=== PATIENT | female | born 1975 | race Caucasian/White ===

== ENCOUNTER 2020-11-15 12:52 | Emergency (ER) | payer MEDICARE, MEDICAID, SELFPAY ==
[2020-11-15] VITALS (7 sets, daily range): BP systolic 144–180; BP diastolic 87–99; PULSE 75–94; RESP 18–19; TEMP 36.9–37.2; O2SAT 99–100; BMI 30.8
--- NOTE | 2020-11-15 | ECG_ITS ---
Test Reason : CHEST PAIN Blood Pressure : / mmHG Vent. Rate : 100 BPM Atrial Rate : 100 BPM P-R Int : 118 ms QRS Dur : 076 ms QT Int : 356 ms P-R-T Axes : 047 040 074 degrees QTc Int : 459 ms Normal sinus rhythm Possible Left atrial enlargement Nonspecific ST abnormality Abnormal ECG When compared with ECG of 05-MAY-2015 13:00, No significant change was found Referred By: Generic ED Physician Electronically Signed By:CHIOMA TOBIN
--- NOTE | ~2020-11-15 | CT_ITS ---
EXAMINATION: CT ANGIOGRAM OF THE CHEST WITH AND WITHOUT CONTRAST (CT PULMONARY ANGIOGRAM FOR PE) CLINICAL INFORMATION: Reason for Exam sob, cp, elevated d dimer, r/o pe COMPARISON: CTA chest 06/17/2014 TECHNIQUE: Prior to contrast administration, noncontrast localization images were obtained. Subsequently, multidetector volumetric imaging was performed from the thoracic inlet to below the diaphragms following the administration of 63 mL Omnipaque 350 intravenous contrast. No contrast reaction reported Sagittal, coronal, and MIP oblique sagittal reformatted images were obtained on the CT workstation, uploaded to PACS, and reviewed. This CT examination was performed using dose optimization techniques as appropriate, variously including the following: *Automated exposure control *Adjustment of mA and/or kV according to patient size (this includes techniques or standardized protocols for targeted exams where dose is matched to indication/reason for exam; i.e. extremities or head) *Use of iterative reconstruction technique Total exam dose-length product 1025 mGy-cm FINDINGS: QUALITY OF STUDY/CONTRAST BOLUS: Satisfactory. PULMONARY ARTERIES: No central or segmental pulmonary emboli. THORACIC AORTA: No aneurysm or dissection. LUNG: No focal consolidation, worrisome nodules or masses. 3 perihepatic visual nodular densities present along the minor fissure on the right, the largest measuring 4 mm (19:193, 194 and 196) with a single 3 mm left lower lobe nodule along the major fissure (19:199). All of these findings are unchanged when compared to the prior study. PLEURA: No pleural effusion or pneumothorax. MEDIASTINUM: Normal heart size. No pericardial effusion. There are some small mediastinal and hilar lymph nodes present but there is no hilar or mediastinal lymphadenopathy. No evidence of septal bowing or right heart strain. CHEST WALL/AXILLA: No axillary or internal mammary lymphadenopathy. OSSEOUS STRUCTURES: No acute or suspicious osseous abnormality. Degenerative changes are present in the spine. UPPER ABDOMEN: Unremarkable. No reflux of contrast into the hepatic veins to suggest elevated right heart pressures. CT/CT angio chest PE protocol IMPRESSION: 1. No evidence of pulmonary emboli. 2. A concerning or worrisome finding is not present. Lung nodules stable when compared to 2015 study. VTE: negative
--- NOTE | ~2020-11-15 | CT_ITS ---
EXAMINATION: CT HEAD WITHOUT CONTRAST CLINICAL INFORMATION: Dizziness, headache. COMPARISON: 11/15/[address] scan. TECHNIQUE: Contiguous axial imaging was performed from the skull base to vertex without intravenous administration of contrast. Coronal and sagittal reformatted images were obtained. This CT examination was performed using dose optimization techniques as appropriate, variously including the following: *Automated exposure control *Adjustment of mA and/or kV according to patient size (this includes techniques or standardized protocols for targeted exams where dose is matched to indication/reason for exam; i.e. extremities or head) *Use of iterative reconstruction technique DLP: 1025 mGy-cm FINDINGS: There is no evidence of acute intracranial hemorrhage or territorial infarction. No abnormal mass effect or midline shift is seen. Mckeon to white matter differentiation is well preserved. No extra-axial fluid collections are identified. The ventricles are normal in size. There is no abnormal attenuation within the brain parenchyma. The osseous structures and soft tissues are normal. The mastoid air cells and visualized portions of the paranasal sinuses are well aerated. Moderate to severe mucosal thickening is seen in the right nasal mucosa. Moderate mucosal thickening is seen on the left. CT/CT head/brain wo con IMPRESSION: 1. No acute intracranial pathology. 2. Prominent nasal mucosal thickening, right greater than left. Correlate with physical exam.
[2020-11-15 16:04] LABS: Basophils Percent Auto 0.3 % (0-2); Eosinophils Absolute Auto 0.2 X10*3/uL (0.0-0.4); Eosinophils Percent Auto 2.5 % (0-4); Hematocrit 44.1 % (37-47); Hemoglobin 14.3 g/dl (12.0-16.0); Imm Gran Abs Auto 0.04 X10*3/uL (0.00-0.03); Imm Gran Pct Auto 0.4 % (0.0-0.4); Lymphocytes Absolute Auto 2.7 X10*3/uL (1.2-4.9); Lymphocytes Percent Auto 28.2 % (20-40); MANUAL DIFF FLAG NO; Mean Corpuscular HGB Conc 32.4 g/dl (31.0-35.0); Mean Corpuscular Hemoglobin 32.4 pg (27.0-33.0); Mean Platelet Volume 10.3 fL (9.4-12.3); Monocytes Absolute Auto 0.8 X10*3/uL (0.1-1.2); Monocytes Percent Auto 8.5 % (2-11); Neutrophils Absolute Auto 5.8 X10*3/uL (2.0-8.3); Neutrophils Percent Auto 60.1 % (45-73); Platelet Count 250 X10*3/uL (160-400); Red Blood Count 4.41 X10*6/uL (4.20-5.50); Red Cell Distribution Width 12.3 % (11.0-16.0); White Blood Count 9.6 X10*3/uL (4.8-10.8)
[2020-11-15 16:09] LABS: INTERNATIONAL NORM RATIO 0.9 (0.9-1.1); Prothrombin Time 10.7 SEC (9.9-13.0)
[2020-11-15 16:12] LABS: D Dimer 427 NG/ML
--- NOTE | 2020-11-15 16:12 | ED_ITS ---
HPI - Chest Pain General Chief Complaint: Chest Pain Stated Complaint: cp Time Seen by Provider: 11/15/20 15:33 Source: patient and family Mode of arrival: ambulatory Limitations: no limitations History of Present Illness HPI narrative: 45-year-old female with a past medical history of rheumatoid arthritis, GERD here with complaints of dizziness with position changes for 2 weeks, feeling palpitations with moving, mild chest discomfort and shortness of breath. Patient tells me that she has felt very dizzy with moving and has fallen several times with no head strike or loss of consciousness. She tells me she also feels like her right arm gets fatigued at times and weak and this is also in going on for several weeks with some intermittent numbness and paresthesias. She also has some discomfort in her right calf which she is unable to tell me how long this is been going on for. She tells me she was seen at [facility] November 12 for similar symptoms. She had lab work, EKG, chest x-ray, CT head and neck with contrast, right lower extremity ultrasound all unremarkable. She was discharged home with primary care follow- up. She tells me she is here today for persistent symptoms. She tells me she did not want to go back to [facility] want to come here for a 2nd opinion. Of note the patient was noted to be hypertensive there with a blood pressure 161/105. Per patient her blood pressure is normally normotensive. She is not currently on any medications for high blood pressure Related Data Previous Rx's Medication Instructions Recorded amlodipine 5 mg tablet (Norvasc) 5 mg PO DAILY #30 tab 11/15/20 amoxicillin 875 mg-potassium 1 tab PO Q12H #14 tab 11/15/20 clavulanate 125 mg tablet (Augmentin) cetirizine 10 mg tablet 10 mg PO DAILY #30 tab 11/15/20 Allergies Allergy/AdvReac Type Severity Reaction Status Date / Time cyclobenzaprine Allergy Intermediate CHEST PAIN Unverified 11/22/19 16:50 [From FLEXERIL] prednisone [PREDNISONE] Allergy Intermediate CHEST PAIN Unverified 11/22/19 16:50 Review of Systems Review of Systems: Yes all other systems are reviewed and are negative Constitutional: Constitutional: Reports no additional constitutional complaints, Denies body ache(s), Denies chills, Denies fever(s), Reports headache(s) and Denies weakness Eyes: Eyes: Reports no additional eye complaints and Denies change in vision ENT: Reports system reviewed and no additional complaints, except as documented, Reports dizziness, Reports headache(s), Denies nasal congestion, Denies nasal discharge and Denies neck pain Cardiovascular: Cardiovascular: Reports no additional cardiovascular complaints, Reports chest pain, Denies leg edema, Reports palpitations and Denies dyspnea Respiratory: Respiratory: Reports no additional respiratory complaints, Denies cough and Denies dyspnea Gastrointestinal: Gastrointestinal: Reports no additional gastrointestinal complaints, Denies abdominal pain, Denies diarrhea, Denies nausea and Denies vomiting Genitourinary: Genitourinary: Reports no additional female genitourinary complaints and Denies urinary incontinence Musculoskeletal: Musculoskeletal: Reports no additional musculoskeletal complaints, Denies back pain, Denies arthralgias, Denies joint swelling, Denies neck pain, Denies numbness and Denies tingling Comments: leg pain Integumentary/Breasts: Skin/Breast: Reports system reviewed and no additional complaints, except as docu and Denies rash Neurologic: Reports system reviewed and no additional complaints, except as documented, Denies Abnormal speech present, Reports dizziness, Reports headache(s), Denies numbness, Denies tingling and Denies weakness Endocrine: Endocrine: Reports palpitations PMFSH Past Medical History Attestation statement: The following information was validated with the patient. Source: old records reviewed and nursing notes reviewed Medical History Back problem Rheumatoid arthritis Social History Social History Patient Tobacco Use Status: Current everyday Tobacco user Use of substances other than those prescribed or required for medical reasons: No Advance Directives: No Advance Directives Information Provided: No Patient : No Physical Exam Vital Signs: Vital Signs: Last Vital Signs Temp 98.5 F 11/15/20 17:04 Pulse 75 11/15/20 18:57 Resp 18 11/15/20 18:57 BP 169/90 H 11/15/20 18:57 Pulse Ox 99 11/15/20 18:57 Body Mass Index 30.8 Const: General: cooperative, healthy appearing, comfortable and no acute distress Orientation/consciousness: patient oriented x3 Limitations: no limitations HENMT: Head: Yes normal to inspection Ears: hearing grossly normal bilaterally General nose exam: Normal external nose present Face and sinus: Yes normal facial exam Mouth: Normal oral and palatal mucosa present Throat: Yes posterior oropharynx normal Eyes: General: appearance normal, both eyes and all related structures Pupils: Equal, round and reactive pupils present Neck: Neck: Yes normal visual inspection Chest: Chest palpation & inspection: normal inspection of the chest Resp: Effort & Inspection: normal respiratory effort Auscultation: clear to auscultation bilaterally Cardio: Rate: regular rate Rhythm: regular rhythm Peripheral pulses: Peripheral pulses 2+ throughout GI: Inspection: Yes normal to inspection Palpation (GI): Soft to palpation and nontender Auscultation: normal bowel sounds Back/Spine/Pelvis: Thoracic/Lumbar Spine: thoracic and lumbar spine normal to inspection Skin: General skin exam: no rashes or lesions noted Neuro: General: patient oriented x3, no focal motor deficits and normal sensation to monofilament Cranial nerves: Yes CN's II-XII intact bilaterally, Yes Equal, round and reactive pupils present, Yes Bilaterally intact EOM pres ent, Yes Nystagmus not present, Yes Normal facial strength present and Yes Midline tongue present Cognition (Neuro): normal cognition Speech: No A bnormal speech present Gait exam (Neuro): Normal gait present Motor exam (neuro): 5/5 motor strength present throughout Sensory Exam: Normal double simultaneous stimulation for sensation Coordination: [id number] test normal, [id number] test normal and tandem gait normal Extrem: Other: right calf tendernesss-mild no warmth or redness General: Yes normal to inspection and Yes no pedal edema Course Course Course Narrative: 45-year-old female here with complaints of dizziness, palpitations, mild headache, right upper extremity fatigue and numbness which is intermittent and right posterior calf pain for several weeks. Seen at [facility] on November 12 for similar complaints and had extensive workup including labs, EKG, chest x-ray, CT head and neck and right lower extremity ultrasound all unremarkable. Discharged home with primary care follow-up. The patient tells me her symptoms have continued. She was noted to be hypertensive during her ER visit and is hypertensive today. Will obtain records from [facility]. Will check EKG, labs, UA. 1645-obtain records from [facility]. CT head and neck unremarkable. Labs all unremarkable. Right lower extremity ultrasound negative for DVT. Due to complaints of palpitations, dizziness, mild chest discomfort and shortness of breath with an elevated D-dimer will check CTA to rule out PE vs dissection. Patient also with complaints of intermittent RUE weakness/numbness. No paresthesias noted on exam. No sensation loss or weakness on exam. Normal neuro exam. Will repeat CT head. Antihypertensive for blood pressure control Symptoms likely multifactorial 2100-CT chest negative. CT head concerning for sinusitis but otherwise unremarkable. Patient does report nasal congestion, sinus pressure and pain. Her dizziness and headache may be related to underlying sinusitis. However I believe is multifactorial as her blood pressure is also elevated. Blood pressure has improved with a dose of Norvasc here in the emergency department so I will send her home with the same.. Her troponin was mildly elevated however her EKG shows no EKG changes and her chest pain is very atypical for ACS. Will plan for repeat 3 hour troponin. Repeat neurological exam is benign. No focal deficits. I discussed all the findings with the patient. I recommend that she follow-up with her primary care doctor outpatient. Reviewed worrisome signs and symptoms when to return to the emergency department . Comfortable discharge home. -Sign out to Celestina [employer] pending repeat troponin MDM - Chest Pain MDM Narrative Medical decision making narrative: Hypertensive urgency PE Constellation of symptoms within benign exam. Hemodynamically stable. Extensive workup at [facility] 3 days ago with no acute finding. Medical Records Data Attestation: I reviewed the patient's medical records. Lab Data Attestation: I reviewed the patient's lab results. Result diagrams: 11/15/20 15:58 11/15/20 15:58 Labs: Lab Results 11/15/20 11/15/20 11/15/20 Range/Units 15:58 15:58 15:58 WBC 9.6 (4.8-10.8) X10*3/uL RBC 4.41 (4.20-5.50) X10*6/uL Hgb 14.3 (12.0-16.0) g/dl Hct 44.1 (37-47) % MCV 100.0 H (80-98) fL MCH 32.4 (27.0-33.0) pg MCHC 32.4 (31.0-35.0) g/dl RDW 12.3 (11.0-16.0) % Plt Count 250 (160-400) X10*3/uL MPV 10.3 (9.4-12.3) fL Immature Gran % (Auto) 0.4 (0.0-0.4) % Neut % (Auto) 60.1 (45-73) % Lymph % (Auto) 28.2 (20-40) % [place] % (Auto) 8.5 (2-11) % Eos % (Auto) 2.5 (0-4) % Baso % (Auto) 0.3 (0-2) % Lymph # (Auto) 2.7 (1.2-4.9) X10*3/uL [place] # (Auto) 0.8 (0.1-1.2) X10*3/uL Eos # (Auto) 0.2 (0.0-0.4) X10*3/uL Baso # (Auto) 0.0 (0.0-0.2) X10*3/uL Abs Immat Gran (auto) 0.04 H (0.00-0.03) X10*3/uL Absolute Neuts (auto) 5.8 (2.0-8.3) X10*3/uL Absolute Nucleated RBC 0.000 (0.0-0.012) X10*3/uL Nucleated RBC % (auto) 0.0 (0.0-0.2) /100WBC PT 10.7 (9.9-13.0) SEC INR 0.9 (0.9-1.1) D-Dimer 427 NG/ML Sodium 139 (135-145) mmol/L Potassium 3.8 (3.3-5.1) mmol/L Chloride 104 (96-108) mmol/L Carbon Dioxide 27 (22-29) mmol/L Anion Gap 12 (12-20) BUN 11 (9-16) mg/dL Creatinine 0.84 (0.5-1.4) mg/dL Estim Creat Clear Calc 76.9 Estimated GFR > 60 Random Glucose 98 (60-115) mg/dL Calcium 9.5 (8.4-10.2) mg/dL Magnesium 1.9 (1.6-2.6) mg/dL Total Bilirubin < 0.2 (0.0-1.0) mg/dL Direct Bilirubin < 0.2 (0.0-0.5) mg/dL AST 17 (5-31) U/L ALT 19 (0-31) U/L Alkaline Phosphatase 91 (39-117) U/L Troponin I High Sens (<3.5-17.0) ng/L Total Protein 7.5 (6.5-8.0) g/dL Albumin 4.2 (3.5-5.0) g/dL TSH 1.30 (0.32-4.0) uIU/mL Urine Color Urine Appearance Urine pH (5.0-8.0) Ur Specific [place] (1.005-1.025) Urine Protein (NEG-TRACE) MG/DL Urine Glucose (UA) (NEG) MG/DL Urine Ketones (NEG) MG/DL Urine Blood (NEG) Urine Nitrite (NEG) Ur Leukocyte Esterase (NEG) Urine RBC (0) /HPF Urine WBC (0-4) /HPF Ur Squamous Epith Cells /LPF Urine Bacteria /LPF 11/15/20 11/15/20 Range/Units 15:58 16:16 WBC (4.8-10.8) X10*3/uL RBC (4.20-5.50) X10*6/uL Hgb (12.0-16.0) g/dl Hct (37-47) % MCV (80-98) fL MCH (27.0-33.0) pg MCHC (31.0-35.0) g/dl RDW (11.0-16.0) % Plt Count (160-400) X10*3/uL MPV (9.4-12.3) fL Immature Gran % (Auto) (0.0-0.4) % Neut % (Auto) (45-73) % Lymph % (Auto) (20-40) % [place] % (Auto) (2-11) % Eos % (Auto) (0-4) % Baso % (Auto) (0-2) % Lymph # (Auto) (1.2-4.9) X10*3/uL [place] # (Auto) (0.1-1.2) X10*3/uL Eos # (Auto) (0.0-0.4) X10*3/uL Baso # (Auto) (0.0-0.2) X10*3/uL Abs Immat Gran (auto) (0.00-0.03) X10*3/uL Absolute Neuts (auto) (2.0-8.3) X10*3/uL Absolute Nucleated RBC (0.0-0.012) X10*3/uL Nucleated RBC % (auto) (0.0-0.2) /100WBC PT (9.9-13.0) SEC INR (0.9-1.1) D-Dimer NG/ML Sodium (135-145) mmol/L Potassium (3.3-5.1) mmol/L Chloride (96-108) mmol/L Carbon Dioxide (22-29) mmol/L Anion Gap (12-20) BUN (9-16) mg/dL Creatinine (0.5-1.4) mg/dL Estim Creat Clear Calc Estimated GFR Random Glucose (60-115) mg/dL Calcium (8.4-10.2) mg/dL Magnesium (1.6-2.6) mg/dL Total Bilirubin (0.0-1.0) mg/dL Direct Bilirubin (0.0-0.5) mg/dL AST (5-31) U/L ALT (0-31) U/L Alkaline Phosphatase (39-117) U/L Troponin I High Sens 13.5 (<3.5-17.0) ng/L Total Protein (6.5-8.0) g/dL Albumin (3.5-5.0) g/dL TSH (0.32-4.0) uIU/mL Urine Color YELLOW Urine Appearance CLEAR Urine pH 6.0 (5.0-8.0) Ur Specific [place] 1.015 (1.005-1.025) Urine Protein NEG (NEG-TRACE) MG/DL Urine Glucose (UA) NEG (NEG) MG/DL Urine Ketones NEG (NEG) MG/DL Urine Blood TRACE (NEG) Urine Nitrite NEG (NEG) Ur Leukocyte Esterase NEG (NEG) Urine RBC 1-4 (0) /HPF Urine WBC 0 (0-4) /HPF Ur Squamous Epith Cells TRACE /LPF Urine Bacteria NONE /LPF Imaging Data CT scan - chest: Attestation: I personally reviewed and interpreted this imaging study as follows: Radiologist's impression: INDINGS: QUALITY OF STUDY/CONTRAST BOLUS: Satisfactory. PULMONARY ARTERIES: No central or segmental pulmonary emboli.? THORACIC AORTA: No aneurysm or dissection. LUNG: No focal consolidation, worrisome nodules or masses. 3 perihepatic visual nodular densities present along the minor fissure on the right, the largest measuring 4 mm (19:193, 194 and 196) with a single 3 mm left lower lobe nodule along the major fissure (19:199). All of these findings are unchanged when compared to the prior study. PLEURA: No pleural effusion or pneumothorax. MEDIASTINUM: Normal heart size.? No pericardial effusion. There are some small mediastinal and hilar lymph nodes present but there is no hilar or mediastinal lymphadenopathy.? No evidence of septal bowing or right heart strain. CHEST WALL/AXILLA: No axillary or internal mammary lymphadenopathy. OSSEOUS STRUCTURES: No acute or suspicious osseous abnormality. Degenerative changes are present in the spine. UPPER ABDOMEN: Unremarkable.? No reflux of contrast into the hepatic veins to suggest elevated right heart pressures. CT/CT angio chest PE protocol IMPRESSION: 1.? No evidence of pulmonary emboli. 2.? A concerning or worrisome finding is not present. Lung nodules stable when compared to 2015 study. ? VTE: negative CT scan - head: Attestation: I personally reviewed and interpreted this imaging study as follows: Radiologist's impression: [place] [id number] CT Scan Report Signed Patient: Sania Ornelas MR#: [id number] : 1975 Acct:[id number] Age/Sex: 45 / F ADM Date: 11/15/20 Loc: .ED Attending Dr: Ordering Physician: Adrienne Cloud NP Date of Service: 11/15/20 Procedure(s): CT head/brain wo [facility] Accession Number(s): [id number] cc: Adrienne Cloud NP~ EXAMINATION: CT HEAD WITHOUT CONTRAST CLINICAL INFORMATION: Dizziness, headache.? COMPARISON: 11/15/[address] scan. TECHNIQUE: Contiguous axial imaging was performed from the skull base to vertex without intravenous administration of contrast. Coronal and sagittal reformatted images were obtained. This CT examination was performed using dose optimization techniques as appropriate, variously including the following: *Automated exposure control *Adjustment of mA and/or kV according to patient size (this includes techniques or standardized protocols for targeted exams where dose is matched to indication/reason for exam; i.e. extremities or head) *Use of iterative reconstruction technique DLP: 1025 mGy-cm FINDINGS: There is no evidence of acute intracranial hemorrhage or territorial infarction. No abnormal mass effect or midline shift is seen. Mckeon to white matter differentiation is well preserved. No extra-axial fluid collections are identified. The ventricles are normal in size. There is no abnormal attenuation within the brain parenchyma. The osseous structures and soft tissues are normal. The mastoid air cells and visualized portions of the paranasal sinuses are well aerated. Moderate to severe mucosal thickening is seen in the right nasal mucosa. Moderate mucosal thickening is seen on the left. ? CT/CT head/brain wo con IMPRESSION: 1. No acute intracranial pathology. 2. Prominent nasal mucosal thickening, right greater than left. Correlate with physical exam. ECG Data ECG #1: Attestation: I personally reviewed and interpreted this ECG as follows: ECG interpretation date: 11/15/20 ECG interpretation time: 13:29 Interpretation: Normal sinus rhythm with a rate of 100, normal AR, normal QRS, normal QT. Nonspecific ST changes Discharge Plan Discharge Clinical Impression: Sinusitis, Hypertension Patient Disposition: Home, Self-Care Instructions: Sinusitis (ED), Hypertension (ED) Additional Instructions: Please follow-up with your primary care doctor for a blood pressure recheck and re-evaluation for your symptoms Change positions slowly Increase fluids, rest Start all your medications tomorrow Prescriptions: New amoxicillin-pot clavulanate [Augmentin] 875-125 mg tablet 1 tab PO Q12H Qty: 14 RF: 0 cetirizine 10 mg tablet 10 mg PO DAILY Qty: 30 RF: 0 amlodipine [Norvasc] 5 mg tablet 5 mg PO DAILY Qty: 30 RF: 0 Referrals: Klaudia River MD [Primary Care Provider] - 2 days
[2020-11-15 16:22] LABS: Appearance Urine CLEAR; Color Urine YELLOW; Glucose Urine UA NEG (NEG); Leukocyte Esterase Urine NEG (NEG); Nitrite Urine NEG (NEG); Specific Gravity - Urine 1.015 (1.005-1.025); UACC Culture Trigger NO; Urine Blood TRACE (NEG); Urine Ketones NEG (NEG); Urine Protein NEG (NEG-TRACE)
[2020-11-15 16:23] LABS: Troponin-I High Sensitivity 13.5 ng/L (<3.5-17.0)
[2020-11-15 16:24] LABS: Alanine Aminotransferase 19 U/L (0-31); Albumin Level 4.2 g/dL (3.5-5.0); Alkaline Phosphatase 91 U/L (39-117); Anion Gap 12 (12-20); Aspartate Amino Transferase 17 U/L (5-31); Bilirubin Direct < 0.2 mg/dL (0.0-0.5); Bilirubin Total < 0.2 mg/dL (0.0-1.0); Blood Urea Nitrogen 11 mg/dL (9-16); Calcium 9.5 mg/dL (8.4-10.2); Carbon Dioxide 27 mmol/L (22-29); Chloride 104 mmol/L (96-108); Creatinine Clr Calc Pharmacy 76.9; Estimated Glomerular Filt Rate > 60; Glucose Random 98 mg/dL (60-115); Magnesium 1.9 mg/dL (1.6-2.6); Potassium 3.8 mmol/L (3.3-5.1); Sodium 139 mmol/L (135-145); Total Protein 7.5 g/dL (6.5-8.0)
[2020-11-15 16:32] LABS: Squamous Epithelial Cell Urine TRACE /LPF; WBC Urine 0 /HPF (0-4)
[2020-11-15] MEDS: amLODIPine Besylate 5 MG TABLET PO (17:06)
[2020-11-15 21:15] LABS: Troponin-I High Sensitivity 13.9 ng/L (<3.5-17.0)
[2020-11-15] MEDS: Loratadine 10 MG TABLET PO (21:36)
[2020-11-15] MEDS: Amoxicillin/Potassium Clav 875 MG TABLET PO (21:36)
== END 2020-11-15 23:00 | disposition home or self-care (01) ==
PROVIDERS: Nurse Practitioner Family; Emergency Provider Emergency Medicine Emergency Medical Services; PCP Internal Medicine
DX: J32.9 Chronic sinusitis, unspecified (principal); I10 Essential (primary) hypertension; F17.210 Nicotine dependence, cigarettes, uncomplicated
CPT/HCPCS: 36415; 70450; 71275; 80048; 80076; 81001; 83735; 84443; 84484; 85025; 85379; 85610; 93005; 99284; 99285

== ENCOUNTER 2024-05-13 12:09 | Emergency (ER) | payer MEDICARE, MEDICAID, SELFPAY ==
--- NOTE | ~2024-05-13 | CT_ITS ---
CLINICAL HISTORY: headache resolved L sided arm weakness CT Head Without Contrast: Comparison: None Findings: Cortical sulci are symmetric Basal ganglia are unremarkable No shift in midline structures No intraparenchymal bleeding or abnormal extra axial blood fluid collections Normal pituitary size. Posterior fossa and cerebellar pontine angles are unremarkable. There is mucosal thickening involving inferior right ethmoid sinus and right middle meatus. Unremarkable orbital structures No depressed fractures Impression: Unremarkable CT of the head, no signs of acute trauma This document has been electronically signed by: Jovany Quintana MD on 05/13/2024 16:18:56
--- NOTE | ~2024-05-13 | XR_ITS ---
CLINICAL HISTORY: chest pain 1 view chest x-ray. Comparison: CT 11/15/2020 Findings: No consolidations. No pleural fluid Heart size normal. No acute fracture. A remote healed rib fracture is present in the left chest wall Impression: Lungs are clear. This document has been electronically signed by: Jovany Quintana MD on 05/13/2024 13:42:55
--- NOTE | 2024-05-13 12:11 | ECG_ITS ---
Test Reason : chest pain Blood Pressure : */* mmHG Vent. Rate : 117 BPM Atrial Rate : 117 BPM P-R Int : 128 ms QRS Dur : 70 ms QT Int : 320 ms P-R-T Axes : 59 57 66 degrees QTcB Int : 446 ms Sinus tachycardia Otherwise normal ECG When compared with ECG of 15-Nov-2020 13:29, No significant change was found Referred By: Generic ED Physician Electronically Signed By: MARYLOU RADER
[2024-05-13 12:20] VITALS: BP 128/83; PULSE 122; RESP 20; TEMP 36.7; O2SAT 96; BMI 25.7
--- NOTE | 2024-05-13 12:24 | ED.CHESTPAIN ---
HPI - Chest Pain General Chief Complaint: Chest Pain Stated Complaint: arm numbness and chest pain Time Seen by Provider: 05/13/24 13:58 Source: patient and old records reviewed Mode of arrival: ambulatory Limitations: no limitations History of Present Illness ED Provider: MADI SALDANA narrative: 49 yo female with PMH of HTN, RA on Enbrel here with c/o watching TV at home yesterday developed central chest pressure with some dyspnea. No recent travel or procedures. She reports hx of anxiety causing this chest pain in the past. She denies recent URI or infectious symptoms. She reports today she became concerned when her L arm felt heavy there was no weakness or actual numbness but she states it felt weird. She has no symptoms now other than her chest feels heavy. MD complaint: chest heaviness Onset (ago): day(s) (1) Timing of current episode: constant Prior episodes: Yes Onset: during rest and during exertion Pain location: substernal Pain radiation: left arm Severity: moderate Quality: other (pressure) Relieving factors: nothing Exacerbating factors: nothing Context: other Associated symptoms: dyspnea Treatment prior to arrival: none Related Data Previous Rx's ?Medication ?Instructions ?Recorded amlodipine 5 mg tablet (Norvasc) 5 mg PO DAILY #30 tabs 11/15/20 amoxicillin 875 mg-potassium 1 tab PO Q12H #14 tabs 11/15/20 clavulanate 125 mg tablet (Augmentin) cetirizine 10 mg tablet 10 mg PO DAILY #30 tabs 11/15/20 lorazepam 0.5 mg tablet (Ativan) 0.5 mg PO BEDTIME PRN anxiety #5 05/13/24 tabs Allergies Allergy/AdvReac Type Severity Reaction Status Date / Time cyclobenzaprine Allergy Intermediate CHEST PAIN Verified 05/13/24 12:23 [From FLEXERIL] prednisone [PREDNISONE] Allergy Intermediate CHEST PAIN Verified 05/13/24 12:23 tramadol AdvReac Chest Pain Verified 05/13/24 12:23 Review of Systems Review of Systems: Constitutional : No Weight loss, No Fever, No Chills ENT/Mouth : No sore throat, No Rhinorrhea Eyes: No Eye Pain, No Swelling Cardiovascular : pos Chest Pain, pos SOB, no Dyspnea on Exertion, No Orthopnea, No Edema, No Palpitations Respiratory : No Cough, No Sputum Gastrointestinal : no Nausea, No Vomiting, No Diarrhea, No abdominal Pain, No Hematochezia, No Melena Genitourinary : No Dysuria, No Urinary Frequency Musculoskeletal : No joint pain, No Myalgias, No Joint Swelling Skin : No Skin Lesions, No rash Neuro : No Weakness, No Numbness, No Dizziness, No Headache Psych : pos Anxiety/Panic, No Depression All other systems reviewed and are negative [facility] Past Medical History Attestation statement: The following information was validated with the patient. Source: old records reviewed Medical History Back problem Rheumatoid arthritis Social History Social History Patient Tobacco Use Status: Current everyday Tobacco user Advance Directives: No Advance Directives Information Provided: Yes Do you have a plan to hurt others: No Plan Patient : No Physical Exam Vital Signs: Vital Signs: Last Vital Signs Temp 98.1 F 05/13/24 16:38 Pulse 94 05/13/24 16:38 Resp 16 05/13/24 16:38 BP 115/68 05/13/24 16:38 Pulse Ox 98 05/13/24 16:38 O2 Del Method Room Air 05/13/24 16:38 BMI result Body Mass Index 25.7 Appearance: Alert. Oriented X3. No acute distress. Eyes: Pupils equal, round and reactive to light. ENT: Pharynx normal. Neck: Normal inspection. Neck supple. CVS: Normal heart rate and rhythm. Pulses normal. Respiratory: No respiratory distress. Breath sounds normal. Abdomen: Soft and nontender. Skin: Skin warm and dry. Normal skin color. Normal skin turgor. Extremities: No lower extremity edema. No calf ttp Neuro: Oriented X 3. No motor deficit. No sensory deficit. CN2-12 intact NIH Stroke Scale Internal: Initial- Upon Arrival Level of Consciousness: Alert Level of Consciousness Questions: Answers both questions correctly Level of Consciousness Commands: Performs both tasks correctly Best Gaze: Normal Visual: No visual loss Facial Palsy: Normal Motor Arm (Right): No drift Motor Arm (Left): No drift Motor Leg (Right): No drift Motor Leg (Left): No drift Limb Ataxia: Absent Sensory: Normal Best Language: No aphasia Dysarthia: Normal Extinction and Inattention: No abnormality Score: 0 Course Course Course Narrative: RME: 49-year-old female presents to ED for left-sided chest pain since last night with left arm weakness starting this morning. Patient states significant family history of [place]. Patient denies any leg swelling, calf pain, coughing up blood, pleurisy. Labs EKG chest x-ray ordered. Medications Administered Discontinued Medications Generic Name Dose Route Start Last Admin Trade Name Dirk PRN Reason Stop Dose Admin Lorazepam 1 mg 05/13/24 14:32 05/13/24 14:55 Lorazepam 1 Mg Tablet PO 05/13/24 14:33 1 mg ONCE ONE Administration Medical Decision Making Medical Decision Making MDM Narrative: 49 yo female with PMH of HTN, RA here with c/o chest pressure since yesterday which she has experienced many times before with anxiety - she also reports new today was her L arm felt weird but no numbness, weakness, and she has pulses intact. She is not toxic appearing. Her symptoms are atypical for ACS. She is low prob VTE will order ddimer. I have ordered troponin x 2, CXR, CT head given her symptoms but I doubt stroke at this time. Differential Diagnosis Differential Diagnoses: The differential diagnosis associated with the presentation includes atypical chest pain, anxiety, TIA seems unlikely states arm was weird but I cannot elicit numbness or weakness, low prob VTE. pulses intact doubt dissection Admission/Observation Consideration of admission/observation: Escalation of care including admission/observation considered trop flat x 2, EKG nonischemic, feel better stable for DC Lab Data [facility] Lab Attestation statement: I reviewed the patient's lab results. 05/13/24 13:37 05/13/24 13:37 Labs: Lab Results 05/13/24 05/13/24 Range/Units 13:37 15:38 WBC 10.2 (4.8-10.8) X10*3/uL RBC 4.64 (4.20-5.50) X10*6/uL Hgb 15.0 (12.0-16.0) g/dl Hct 43.5 (37.0-47.0) % MCV 93.8 (80.0-98.0) fL MCH 32.3 (27.0-33.0) pg MCHC 34.5 (31.0-35.0) g/dl RDW 12.3 (11.0-16.0) % Plt Count 240 (160-400) X10*3/uL MPV 10.2 (9.4-12.3) fL Immature Gran % (Auto) 0.4 (0.0-0.4) % Neut % (Auto) 58.7 (45-73) % Lymph % (Auto) 31.8 (20-40) % [place] % (Auto) 6.8 (2-11) % Eos % (Auto) 2.0 (0-4) % Baso % (Auto) 0.3 (0-2) % Lymph # (Auto) 3.3 (1.2-4.9) X10*3/uL [place] # (Auto) 0.7 (0.1-1.2) X10*3/uL Eos # (Auto) 0.2 (0.0-0.4) X10*3/uL Baso # (Auto) 0.0 (0.0-0.2) X10*3/uL Abs Immat Gran (auto) 0.04 H (0.00-0.03) X10*3/uL Absolute Neuts (auto) 6.0 (2.0-8.3) x10*3/uL Absolute Nucleated RBC 0.000 (0.0-0.012) X10*3/uL Nucleated RBC % (auto) 0.0 (0.0-0.2) /100WBC PT 11.3 (10.9-12.4) SEC INR 1.0 (0.9-1.1) APTT 27.4 (26.0-36.8) SEC D-Dimer High Sensitivty < 150 NG/ML Sodium 142 (135-145) mmol/L Potassium 4.8 (3.3-5.1) mmol/L Chloride 107 (96-108) mmol/L Carbon Dioxide 23 (22-29) mmol/L Anion Gap 17 (12-20) BUN 16 (9-16) mg/dL Creatinine 0.99 (0.5-1.4) mg/dL Estim Creat Clear Calc 57.2 Estimated GFR 59 Random Glucose 84 (60-115) mg/dL Calcium 9.4 (8.4-10.2) mg/dL Total Bilirubin 0.3 (0.0-1.0) mg/dL AST 33 H (5-31) U/L ALT 30 (0-31) U/L Alkaline Phosphatase 87 (39-117) U/L Troponin I High Sens 8.4 9.0 (<3.5-17.0) ng/L B-Natriuretic Peptide < 10 (<100) pg/mL Total Protein 8.7 H (6.5-8.0) g/dL Albumin 4.4 (3.5-5.0) g/dL Influenza Type A (PCR) NEGATIVE (Negative) Influenza Type B (PCR) NEGATIVE (Negative) RSV RNA Qual (PCR) NEGATIVE (Negative) SARS-CoV-2 RNA (RT-PCR) NEGATIVE (Negative) Independent Interpretation I performed an independent interpretation of an: EKG, Plain X-Ray (normal ) and CT Scan (normal ) Interpretation: Rate: 117 Rhythm: sinus tachycardia [place]: normal Normal P waves. Normal RIZWAN. Normal QRS complex. ST T wave : normal no RAE qTC: 446 prior studies: no acute ischemia The study has been interpreted contemporaneously by me. . Radiology Impression Discussion of test interpretation with radiology: I have reviewed the radiologist's reading. Independent Historian Clinical information obtained from an independent historian. History obtained from or confirmed by: Other (daughter) External Record Review External record reviewed: Outpatient record Prescription Management I considered prescription management with: Other Discharge Plan Discharge Clinical Impression: Atypical chest pain Patient Disposition: Home, Self-Care Instructions: Chest Pain (ED) Additional Instructions: during ED visit today - repeat tests for heart normal, EKG reassuring, chest xray normal CT head normal please take all of your medications as prescribed. Return for any worsening symptoms or concerns. monitor your chest pain and any return of any feelings of heaviness, etc - seek medical care if this happens rest and stay hydrated Prescriptions: New lorazepam [Ativan] 0.5 mg tablet 0.5 mg PO BEDTIME PRN (Reason: anxiety) Qty: 5 0RF No Action amoxicillin-pot clavulanate [Augmentin] 875-125 mg tablet 1 tab PO Q12H Qty: 14 0RF cetirizine 10 mg tablet 10 mg PO DAILY Qty: 30 0RF amlodipine [Norvasc] 5 mg tablet 5 mg PO DAILY Qty: 30 0RF Interventions: ED Discharge Assessment Last Done: 05/13/24 16:38 Discharge Date/Time: 05/13/24 16:38 Print Language: Portuguese
[2024-05-13 13:42] LABS: MANUAL DIFF FLAG NO
[2024-05-13 13:43] LABS: Basophils Percent Auto 0.3 % (0-2); Eosinophils Absolute Auto 0.2 X10*3/uL (0.0-0.4); Hematocrit 43.5 % (37.0-47.0); Imm Gran Abs Auto 0.04 X10*3/uL (0.00-0.03); Imm Gran Pct Auto 0.4 % (0.0-0.4); Lymphocytes Absolute Auto 3.3 X10*3/uL (1.2-4.9); Lymphocytes Percent Auto 31.8 % (20-40); Mean Corpuscular HGB Conc 34.5 g/dl (31.0-35.0); Mean Corpuscular Hemoglobin 32.3 pg (27.0-33.0); Mean Corpuscular Volume 93.8 fL (80.0-98.0); Mean Platelet Volume 10.2 fL (9.4-12.3); Monocytes Absolute Auto 0.7 X10*3/uL (0.1-1.2); Monocytes Percent Auto 6.8 % (2-11); Neutrophils Percent Auto 58.7 % (45-73); Platelet Count 240 X10*3/uL (160-400); Red Blood Count 4.64 X10*6/uL (4.20-5.50); Red Cell Distribution Width 12.3 % (11.0-16.0); White Blood Count 10.2 X10*3/uL (4.8-10.8)
[2024-05-13 13:48] LABS: Prothrombin Time 11.3 SEC (10.9-12.4)
[2024-05-13 13:51] LABS: Partial Thromboplastin Time 27.4 SEC (26.0-36.8)
[2024-05-13 14:02] LABS: B Type Natriuretic Peptide < 10 pg/mL (<100)
[2024-05-13 14:03] LABS: Troponin-I High Sensitivity 8.4 ng/L (<3.5-17.0)
[2024-05-13 14:06] LABS: Alanine Aminotransferase 30 U/L (0-31); Albumin Level 4.4 g/dL (3.5-5.0); Alkaline Phosphatase 87 U/L (39-117); Anion Gap 17 (12-20); Aspartate Amino Transferase 33 U/L (5-31); Bilirubin Total 0.3 mg/dL (0.0-1.0); Blood Urea Nitrogen 16 mg/dL (9-16); Calcium 9.4 mg/dL (8.4-10.2); Carbon Dioxide 23 mmol/L (22-29); Chloride 107 mmol/L (96-108); Creatinine Clr Calc Pharmacy 57.2; Estimated Glomerular Filt Rate 59; Glucose Random 84 mg/dL (60-115); Potassium 4.8 mmol/L (3.3-5.1); Sodium 142 mmol/L (135-145); Total Protein 8.7 g/dL (6.5-8.0)
[2024-05-13 14:13] LABS: D Dimer High Sensitivity < 150 NG/ML
[2024-05-13 14:19] LABS: Influenza A PCR NEGATIVE (Negative); Influenza B PCR NEGATIVE (Negative); Resp Syncy Virus RNA Qual PCR NEGATIVE (Negative); SARS COV2 PCR INHOUSE NEGATIVE (Negative)
[2024-05-13] MEDS: LORazepam 1 MG TABLET PO (14:55)
[2024-05-13 15:32] VITALS: BP 115/68; PULSE 94; RESP 16; TEMP 36.7; O2SAT 98
--- NOTE | 2024-05-13 15:53 | PC.NURSE ---
pt medicated per MAR- repeat troponin pending
[2024-05-13 15:55] VITALS: PULSE 84
--- NOTE | 2024-05-13 15:55 | PC.NURSE ---
pt continues to board in department- awaiting bed assignment on [facility], plan is for admission and surgical intervention- pt medicated with scheduled APAP- and PRN oxy 5mg for 8/10 right hand pain. family visiting at beside w/ patient
[2024-05-13 16:38] VITALS: BP 115/68; PULSE 94; RESP 16; TEMP 36.7; O2SAT 98
== END 2024-05-13 16:38 | disposition home or self-care (01) ==
PROVIDERS: Physician Assistant; Emergency Provider Emergency Medicine; PCP Student in an Organized Health Care Education/Training Program
DX: R07.89 Other chest pain (principal); R20.0 Anesthesia of skin; R06.02 Shortness of breath; R51.9 Headache, unspecified; R00.0 Tachycardia, unspecified; F17.210 Nicotine dependence, cigarettes, uncomplicated; Z03.818 Encounter for observation for suspected exposure to other biological agents ruled out; Z79.899 Other long term (current) drug therapy
CPT/HCPCS: 0241U; 36415; 70450; 71045; 80053; 83880; 84484; 85025; 85379; 85610; 85730; 93005; 99284; 99285

== ENCOUNTER → 2024-05-13 12:11 | Outpatient (BNV) | payer MEDICARE, MEDICAID, SELFPAY | PROVIDERS: Emergency Provider Emergency Medicine; PCP Student in an Organized Health Care Education/Training Program; Visit Provider Internal Medicine | DX: R00.0 Tachycardia, unspecified (principal) | CPT/HCPCS: 93010 ==

== ENCOUNTER → 2024-05-13 12:24 | Outpatient (BNV) | payer MEDICARE, SELFPAY | PROVIDERS: Emergency Provider Emergency Medicine; PCP Student in an Organized Health Care Education/Training Program; Visit Provider Radiology Diagnostic Radiology | DX: R51.9 Headache, unspecified (principal); R07.9 Chest pain, unspecified | CPT/HCPCS: 70450; 71045 ==